=== PATIENT | female | born 1965 | race Caucasian/White ===

== ENCOUNTER 2025-04-13 18:14 | Emergency (ER) | payer OTHER ==
[~2025-04-13] VITALS: Ht 175.3 cm; Wt 75.0 kg
[2025-04-13 18:17] VITALS: O2SAT 100
[2025-04-13 19:29] LABS: DIFFERENTIAL COMMENT 1; HEMATOCRIT. 43.3 % (36.0-48.0); HEMOGLOBIN. 14.8 g/dL (12.0-16.0); MEAN CORPUSCULAR HEMOGLOBIN 32.9 pg (28.0-32.0); MEAN CORPUSCULAR HGB CONC 34.2 g/dL (31.0-37.0); MEAN CORPUSCULAR VOLUME 96.1 fL (81.0-99.0); MEAN PLATELET VOLUME 8.1 fl (7.4-10.4); PLATELET 237 x1000/uL (130-400); RED BLOOD CELL COUNT 4.51 mill/uL (4.2-5.4); RED CELL DISTRIBUTION WIDTH 12.8 % (11.6-14.6); WHITE BLOOD COUNT 9.6 x1000/uL (4.5-11.0)
[2025-04-13 19:34] LABS: CHLORIDE 105 mEq/L (98-107); POTASSIUM 3.8 mEq/L (3.5-5.1); SODIUM 139 mEq/L (136-145)
[2025-04-13 19:35] LABS: CALCIUM 9.8 mg/dL (8.7-10.4); CARBON DIOXIDE 20 mEq/L (21-32)
[2025-04-13 19:36] LABS: INR 1.1; PROTHROMBIN TIME 11.3 sec (9.6-11.0)
[2025-04-13 19:40] LABS: CREATININE 0.8 mg/dL (0.6-1.0); GLUCOSE 173 mg/dL (70-105); UREA NITROGEN BLOOD 12 mg/dL (9-23)
[2025-04-13 19:41] LABS: ETHANOL BLOOD < 10 mg/dL (<10)
[2025-04-13 19:42] LABS: ALANINE AMINOTRANSFERASE 12 IU/L (10-49); ALBUMIN 4.8 g/dL (3.2-4.8); ASPARTATE AMINOTRANSFERASE 24 IU/L (<34); BILIRUBIN DIRECT 0.3 mg/dL (<=3.0); BILIRUBIN TOTAL 1.3 mg/dL (0.1-1.0)
[2025-04-13 20:36] LABS: PLATELET ESTIMATE NORMAL
[2025-04-13] MEDS: ONDANSETRON HCL 4MG/2ML INJ IV STA (20:40)
[2025-04-13] MEDS: MORPHINE SULFATE 4 MG/ML INJ (FOR IV/IM USE) IV STA (20:41)
[2025-04-13] MEDS: HYDRALAZINE 20MG/ML VIAL IV ONE (21:28)
[2025-04-13] MEDS: KETOROLAC 30MG/ML VIAL IV ONE (23:15)
[2025-04-13] MEDS: SODIUM CHLORIDE 0.9% 1,000 ML IV ONE (23:16)
[2025-04-13 23:17] VITALS: TEMP 36.6
[2025-04-13 23:56] LABS: CLARITY URINE CLEAR (CLEAR); COLOR URINE YELLOW (YELLOW); GLUCOSE URINE TRACE (NEGATIVE); KETONES URINE 4+ (NEGATIVE); LEUKOCYTE ESTERASE URINE 2+ (NEGATIVE); NITRITE URINE NEGATIVE (NEGATIVE); OCCULT BLOOD URINE 1+ (NEGATIVE); PH URINE 6.5 (4.5-8.0); PROTEIN URINE 2+ (NEGATIVE); UROBILINOGEN URINE 0.2 E.U./dL (0.2-1.0)
[2025-04-14 00:27] LABS: SQUAMOUS EPITHELIAL CELL URINE 1+ /lpf (RARE/1+)
[2025-04-14 00:32] LABS: BACTERIA URINE 1+
[2025-04-14] MEDS ORDERED: IBUP-2029 MT (00:34)
[2025-04-14] MEDS ORDERED: TAMS-54 MT (00:34)
[2025-04-14] MEDS ORDERED: CEFP200T14 MT (00:34)
[2025-04-14 01:35] VITALS: BP 158/83; PULSE 71; RESP 16; O2SAT 100
== END 2025-04-14 01:35 | disposition home or self-care (01) ==
LOC: ER 18:14
DX: N20.0 Calculus of kidney (principal); N39.0 Urinary tract infection, site not specified; I10 Essential (primary) hypertension; J45.909 Unspecified asthma, uncomplicated; Z88.0 Allergy status to penicillin; Z79.899 Other long term (current) drug therapy
CPT/HCPCS: 80076; 80048; 81003; 80320; 83690; 85025; 85610; 36415; 74176; 96361; 96374; 96375; 99285; J0360; J1885; J2405; J2270; J7030; G0480